=== PATIENT | female | born 1965 | race Caucasian/White ===

== ENCOUNTER 2023-08-31 10:52 | Day surgery (SDC) | payer BC ==
[2023-08-31] MEDS: Lactated Ringers 1,000 ML IV SCH (11:00)
[2023-08-31 11:15] VITALS: RESP 16
[2023-08-31 11:28] LABS: ANION GAP 13.2 MEQ/L (5-15); Calcium 8.9 mg/dL (8.4-10.2); Creatinine 1 1.01 mg/dL (0.52-1.04); EST GLOMERULAR FILTRATION RATE 64.9 ML/MIN; Potassium 3.8 mmol/L (3.5-5.1)
[2023-08-31] MEDS ORDERED: Versed 2 MG/2 ML Injection ONE (13:04)
[2023-08-31] MEDS ORDERED: DIPRIVAN 200 MG/20 ML IV ONE ×2 (13:04→13:15)
[2023-08-31] MEDS ORDERED: Xylocaine-Mpf 2% 5 Ml Vial ONE (13:04)
[2023-08-31 14:21] VITALS: BP 123/72; PULSE 62; TEMP 97.4; O2SAT 99
--- NOTE | 2023-08-31 14:42 | OP ---
SURGERY DATE/TIME: 08/31/2023 1304 PREOPERATIVE DIAGNOSES: 1) Abnormal CT scan with gastric thickening. 2) Due for colorectal cancer screening. POSTOPERATIVE DIAGNOSES: 1) Gastritis. 2) Colon polyps. 3) Sigmoid diverticulosis. PROCEDURES: 1) EGD with biopsy. 2) Colonoscopy with polypectomy and mucosal resection. SURGEON: Carlos Arboleda M.D. ANESTHESIA: IV anesthesia. CONDITION: Patient condition stable. COMPLICATIONS: None. SPECIMEN: As below. HISTORY: The patient is a 57-year-old female previously on b.i.d. proton pump inhibitor that ran out and then was having epigastric abdominal pain. CT scan showing gastric thickening. She is now is restarted on b.i.d. proton pump inhibitor with some improvement of her symptoms. She is also due for colon cancer screening. Discussed with the patient recommendation for EGD and colonoscopy and she elected to proceed. FINDINGS: Good preparation. Mild gastritis with erythema, a little bit of adherent blood. Colonoscopy good preparation with 1 cm cecal polyp and mucosal resection complete and a 4 mm descending colon polyp. DESCRIPTION OF PROCEDURE: The patient is brought to the endoscopy suite. Routinely positioned and prepared. Timeout performed. IV anesthesia introduced by anesthesia. Video gastroscope inserted through the mouth advanced to the third portion of the duodenum. The duodenum is normal in appearance. The stomach just with some mild erythematous gastritis. There is a small amount of adherent blood suctioned out. Retroflexion no obvious hiatal hernia and gastroesophageal junction is normal. Biopsy is taken of the antrum for Helicobacter pylori. The stomach is suctioned out. Scope is withdrawn. Esophagus is normal. Digital rectal examination is normal. Colonoscope is then inserted and advanced to the cecum confirmed by the ileocecal valve. There is good colon preparation, greater than six minute withdrawal time. There is a cecal polyp 1 cm sessile and a mucosal resection performed with the [employer]ift and then a hot snare that is a complete excision and the specimen is sent. There is also a 4 mm polyp descending colon taken with a cold snare satisfactorily. She does have sigmoid diverticulosis also. Retroflexion in the rectum is normal. The patient tolerated the procedure well. She is then taken to recovery in stable condition. RECOMMENDATIONS: Continue Protonix 40 mg p.o. b.i.d., follow up within one month to review pathology results.
== END 2023-08-31 14:30 | disposition home or self-care (01) ==
LOC: SDC 10:52
PROVIDERS: ATTEND Surgery
DX: Z12.11 Encounter for screening for malignant neoplasm of colon (principal); R93.5 Abnormal findings on diagnostic imaging of other abdominal regions, including retroperitoneum; D12.0 Benign neoplasm of cecum; K29.70 Gastritis, unspecified, without bleeding; K57.30 Diverticulosis of large intestine without perforation or abscess without bleeding
CPT/HCPCS: 36415; 80048; J2250; J2704